=== PATIENT | male | born 1995 | race Caucasian/White ===

== ENCOUNTER 2020-10-15 09:02 | Outpatient (CLI) | payer OTHER, SELFPAY ==
--- NOTE | 2020-10-15 09:11 | ECHO_ITS ---
Patient Info Name: Chilo Nixon Age: 25 years : 1995 Gender: Male Ht: 74 in Wt: 259 lbs BSA: 2.51 m2 HR: 75 bpm BP: 131 / 84 mmHg Heart Rhythm: Sinus Rhythm Technical Quality: Good Exam Date: 10/15/2020 9:18 AM Exam Location: [facility] Patient Status: Outpatient Admit Date: 10/15/2020 Staff Ordering Physician: Chapito Horton MD Assistive Technology Specialist: Joan Nunn RDCS Attending Provider: Chapito Horton MD Exam Type: CA echo doppler color flow Study Info Indications R94.31 - Abnormal electrocardiogram ECG EKG Complete two-dimensional, color flow and Doppler transthoracic echocardiogram is performed. Strain analysis performed. History/Risk Factors Hypertension: No Dyslipidemia: No Congenital Heart Disease (CHD): No Peripheral Arterial Disease (PAD): No Myocardial Infarction (VA): No Chronic Lung Disease: No Obesity: Yes Renal Disease: No Coronary Artery Disease (CAD) No Congestive Heart Failure (CHF): No Cardiomyopathy/LV Systolic Dysfunction: No Diabetes Mellitus: No COPD: No Tobacco Use: Former Cerebrovascular Disease: No Deep Vein Thrombosis (DVT): None Dialysis: None Cardiac Arrest: No Summary 1. Complete two-dimensional, color flow and Doppler transthoracic echocardiogram is performed. 2. No subcostal images acquired. 3. Left ventricular chamber dimension is normal. 4. Left ventricular systolic function is normal, estimated at 60-65%. 5. The left ventricular diastolic function is normal. 6. E/e' 6 is not elevated. 7. Global longitudinal strain is normal at -17.5%. Left Ventricle No subcostal images acquired. Global longitudinal strain is normal at -17.5%. E/e' 6 is not elevated. Left ventricular chamber dimension is normal. Left ventricular systolic function is normal, estimated at 60-65%. The left ventricular diastolic function is normal. Right Ventricle Right ventricular chamber dimension is normal. Right ventricular systolic function is normal. Left Atria Left atrial chamber dimension is normal. Right Atria Right atrial chamber dimension is normal. Aortic Valve The aortic valve is trileaflet. There is no aortic valve stenosis. There is no aortic valve regurgitation. Pulmonic Valve There is no pulmonic regurgitation. Mitral Valve There is no mitral valve stenosis. There is no mitral valve regurgitation. Tricuspid Valve There is no tricuspid valve regurgitation. Pericardium/Pleural There is no pericardial effusion. Aorta The aortic root size at the sinus of Valsalva is normal. Left Ventricular Outflow Tract Name Value Normal LVOT 2D LVOT Diameter 2.4 cm LVOT Doppler LVOT Peak Velocity 90 cm/s LVOT Peak Gradient 3 mmHg LVOT Mean Gradient 2 mmHg LVOT VTI 21 cm LVOT VTI/AV VTI Ratio 1.0 LVOT Stroke Volume 91 ml Mitral Valve
== END 2020-10-15 09:03 | disposition home or self-care (01) ==
LOC: CHSIMG 09:06
PROVIDERS: PCP Internal Medicine; Visit Provider Internal Medicine
DX: R94.31 Abnormal electrocardiogram [ECG] [EKG] (principal)
CPT/HCPCS: 93306

== ENCOUNTER 2021-03-16 10:03 | Outpatient (CLI) | payer OTHER, SELFPAY ==
--- NOTE | ~2021-03-16 | XR_ITS ---
EXAMINATION: XR chest 2V 03/16/2021 10:34 INDICATION: Intermittent shortness of breath PROCEDURE: 2 view chest COMPARISON: 05/29/2019 FINDINGS: The lungs are clear. The cardiomediastinal silhouette is within normal limits. There are no pleural effusions. There is no pneumothorax suspected. IMPRESSION: 1: NO ACUTE CARDIOPULMONARY DISEASE. Reviewed, dictated and finalized at location B.
== END 2021-03-16 10:04 | disposition home or self-care (01) ==
LOC: CHSIMG 10:05
PROVIDERS: PCP Nurse Practitioner Family; Visit Provider Nurse Practitioner Family
DX: R06.02 Shortness of breath (principal)
CPT/HCPCS: 71046

== ENCOUNTER 2025-01-29 09:11 | Outpatient (CLI) | payer BC, SELFPAY ==
[2025-01-29 09:29] LABS: Basophils Absolute Auto 0.02 K/mm3 (0.00-0.10); Basophils Percent Auto 0.3 % (0.0-1.0); Eosinophils Absolute Auto 0.15 K/mm3 (0.02-0.50); Eosinophils Percent Auto 2.1 % (1.0-6.0); Hematocrit 45.1 % (40.0-54.0); Hemoglobin 14.1 g/dL (14.0-18.0); Immature Granulocyte Absolute 0.02 K/mm3 (0.00-0.00); Immature Granulocyte Percent A 0.3 % (0.0-0.0); Lymphocytes Absolute Auto 2.13 K/mm3 (1.10-4.50); Lymphocytes Percent Auto 29.2 % (18.0-42.0); Mean Corpuscular HGB Conc 31.3 g/dL (32-36); Mean Corpuscular Hemoglobin 26.7 pg (27.0-31.0); Mean Corpuscular Volume 85.3 fL (78.0-102.0); Mean Platelet Volume 9.2 fl (8.7-11.0); Monocytes Absolute Auto 0.33 K/mm3 (0.10-0.90); Monocytes Percent Auto 4.5 % (2.0-11.0); Neutrophils Absolute Auto 4.64 K/mm3 (1.70-7.20); Neutrophils Percent Auto 63.6 % (50.0-70.0); Platelet Count Result 296 K/mm3 (150-420); Red Blood Count 5.29 M/mm3 (4.70-6.10); Red Cell Distribution Width 12.4 % (11.6-14.4); White Blood Count 7.3 K/mm3 (4.8-10.8)
[2025-01-29 09:44] LABS: Alanine Aminotransferase 19 U/L (16-63); Albumin Level 3.6 g/dL (3.4-5.0); Alkaline Phosphatase 125 U/L (46-116); Anion Gap 7 mmol/L (4-12); Aspartate Amino Transferase < 10 U/L (15-37); Bilirubin,Total 0.3 mg/dL (0.00-1.00); Blood Urea Nitrogen 15 mg/dL (7-18); Calcium 8.9 mg/dL (8.5-10.1); Carbon Dioxide 29 mmol/L (21-32); Chloride 105 mmol/L (98-108); Cholesterol 165 mg/dL (0-200); Estimated Glomerular Filt Rate > 60; Glucose 97 mg/dL (70-99); HDL Direct 34 mg/dL (40-60); LDL Cholesterol Calculated 100 mg/dL (<130); Osmolality Calculated 292 mOsm/kg (285-295); Sodium 141 mmol/L (136-145); Total Protein 7.5 g/dL (6.4-8.2); Triglycerides 157 mg/dL (0-150)
--- OUTSIDE RECORDS SUMMARY | 2025-01-29 09:51 | XMS_ITS | Clinical Summary ---
Author Organization [address] Address [address] [place] [id number] Care Team Providers Care Warp Tying Machine Knotter Name Role Phone Miscellaneous, Not In File Primary Care Provider Unavailable Allergies No known active allergies Medications propranoloL (INDERAL) 20 mg tablet Take 20 mg by mouth 2 (two) times a day Active FLUoxetine (PROzac) 20 mg capsule Take 20 mg by mouth daily Active Active Problems No known active problems Medical History Medical History Date Comments Anxiety Family History Medical History Relation Name Comments Cancer Maternal Grandmother Relation Name Status Comments Father Alive Maternal Grandmother Mother Alive Social History Tobacco Use Types Packs/Day Years Used Date Smoking Tobacco: Never Smokeless Tobacco: Never Alcohol Use Standard Drinks/Week Comments Yes 0 (1 standard drink = 0.6 oz pur e alcohol) Personal Safety Answer Date Recorded Getting School Help Needed Not on file 12/02 Sex and Gender Information Value Date Recorded Sex Assigned at Not on file 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 Gender Identity Not on file Sexual Orientation Not on file Obstetrics History Last Filed Vital Signs Vital Sign Reading Time Taken Comments Blood Pressure 112/78 01/29/2022 2:00 PM CDT Pulse 86 01/29/2022 2:00 PM CDT Temperature 37.8 C (100.1 F) 01/29/2022 2:00 PM CDT Respiratory Rate 20 01/29/2022 2:00 PM CDT Oxygen Saturation 97% 01/29/2022 2:00 PM CDT Inhaled Oxygen Concentration - - Weight 107.5 kg (237 lb) 01/29/2022 2:00 PM CDT Height 188 cm (6' 2 ) 01/29/2022 2:00 PM CDT Body Mass Index 30.43 01/29/2022 2:00 PM CDT Plan of Treatment Health Maintenance Due Date Last Done Comments Depression Screening 1995 Hepatitis C Screening 1995 DTaP/Tdap/Td Vaccine (1 - Tdap) 2005 Varicella Vaccines (1 of 2 - 13+ 2-dose series) 2007 Hepatitis B Screening 01/10/2012 Regular Well Visit/Exam 18-64 01/10/2012 Covid-19 Vaccine (3 - 2023-2 5 season) 2024 08/15/2021, 12/10/2020 Influenza Vaccine (Season Ended) 2025 HPV Vaccines Aged Out No longer eligi ble based on patient's age to complete this topic Pneumococcal vaccine <65 Aged Out No longer eligible based on patient's age to complete this topic Care Teams Warp Tying Machine Knotter Relationship Specialty Start Date End Date Miscellaneous, Not In File PCP - General 04/27/19
--- OUTSIDE RECORDS SUMMARY | 2025-01-29 09:51 | XMS_ITS | Referral Summary ---
Author Organization [address] Address [address] [place] [id number] Care Team Providers Care Institute Scientist Name Role Phone Miscellaneous, Not In File Primary Care Provider Unavailable Allergies No known active allergies Medications propranoloL (INDERAL) 20 mg tablet Take 20 mg by mouth 2 (two) times a day Active FLUoxetine (PROzac) 20 mg capsule Take 20 mg by mouth daily Active Active Problems No known active problems Social History Tobacco Use Types Packs/Day Years Used Date Smoking Tobacco: Never Smokeless Tobacco: Never Alcohol Use Standard Drinks/Week Comments Yes 0 (1 standard drink = 0.6 oz pur e alcohol) Personal Safety Answer Date Recorded Getting School Help Needed Not on file 12/02 Sex and Gender Information Value Date Recorded Sex Assigned at Not on file 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
[2025-01-29 10:09] LABS: Thyroid Stimulating Hormone Reflex 2.48 u/IU/mL (0.36-3.74)
== END 2025-01-29 09:12 | disposition home or self-care (01) ==
LOC: CHSLAB 09:12
PROVIDERS: PCP Family Medicine; Visit Provider Family Medicine
DX: Z00.00 Encounter for general adult medical examination without abnormal findings (principal); E03.9 Hypothyroidism, unspecified
CPT/HCPCS: 36415; 80053; 80061; 84443; 85025